=== PATIENT | female | born 1940 | race Caucasian/White ===

== ENCOUNTER → 2016-07-22 | Outpatient (CLI) | payer MEDICARE, BC ==
[~2016-07-22] MED LIST: ACETAMINOPHEN325 MG PO; ASPIRIN81 M2 PO; COMBIGAN EYE DRO5 ML OU; DILTIAZEM ER180 M2 PO; HARD NAILS2500 MCG PO; HYDROCODON-ACE1 EAC7 PO; LIPITOR20 MG PO; LOSARTAN-HCTZ1 EACH PO; MOBIC15 MG PO; MULTI VITAMIN1 EACH PO; VITAMIN D32000 UNIT PO
--- NOTE | ~2016-07-22 | EKG ---
PATIENT: OJ MEDINA UNIT #: [id number] Ventricular Rate: 72 BPM Atrial Rate: 72 BPM P-R Interval: 204 ms QRS Duration: 84 ms Q-T Interval: 358 ms QTC Calculation(Bezet): 392 ms P [place]rae [place]: 43 degrees Calculated R [place]: 5 degrees Calculated T Mcrae [place]: 43 degrees Diagnosis Line: Normal sinus rhythm Diagnosis Line: Normal ECG Diagnosis Line: No previous ECGs available Diagnosis Line: Confirmed by NAVIN GUAJARDO MD ([id number]) on Diagnosis Line: 07/22/2016 2:03:36 PM INTERPRETING MD: CASANDRA BARBOUR
--- NOTE | ~2016-07-22 | CO ---
Unit #: [id number] #: [id number] Patient: OJ MEDINA [id number] [address] [place], [place] [address] [id number] O MR#: [id number] NAME: OJ MEDINA ROOM: Age: 76 Sex: F Admission Date: 07/22/2016 : 1940 Attending Physician: Rivas Russo M.D. Primary Care Physician: Violette Schneider M.D. Consultation Date: 07/22/2016 CONSULTATION REPORT REASON FOR CONSULTATION Preoperative medical evaluation prior to revision right total knee arthroplasty scheduled by Dr. Russo for 08/03/2016. HISTORY OF PRESENT ILLNESS The patient is a 76-year-old, female, who presents to preprocedural screening for the reasons indicated above. The patient complains of pain at the time of this interview about a 4/10 on the pain scale, which she describes as constant and achy in nature, otherwise sharp if she twists her knee. She denies chest, upper back, arm, neck, jaw pain or pressure. She tells me she has a history of mitral valve prolapse and known cardiac murmur. She has shortness of air with steps and states that she had a 2D echocardiogram performed by order of her primary care physician, Dr. Violette Schneider in [place] within the last couple of weeks and that she was told it was normal. She had a stress test performed, but it was many years ago. She does not have a java programmer. She denies paroxysmal nocturnal dyspnea. Her reports that she does snore at night and she has not had obstructive sleep apnea evaluation. She denies lightheadedness, dizziness, presyncope, syncope or heart palpitations. She has been evaluated by Dr. Russo and scheduled for the above-referenced procedure. PAST MEDICAL HISTORY 1. Osteoarthritis. 2. Hypertension. 3. Hyperlipidemia. 4. Obesity, BMI of 32. 5. Mitral valve prolapse with history of cardiac murmur. 6. History of gastritis and esophagitis. 7. History of upper and lower back pain. 8. History of breast cancer, status post radiation therapy. 9. Risk factors for obstructive sleep apnea without evaluation. 10. The patient's last dental exam was over 1 year ago. PAST SURGICAL HISTORY 1. Bilateral total knee arthroplasties. 2. Right lumpectomy for DCIS. 3. Eyelid surgically raised and bilateral cataract extraction. Please note, the patient denies a personal and family history of complications to anesthesia. ALLERGIES Tramadol caused her to faint and gabapentin caused her to be agitated. She denies latex allergy. Unit #: [id number] #: [id number] Patient: OJ MEDINA CURRENT MEDICATIONS Losartan/HCTZ 50/12.5 mg tab one p.o. daily, Mobic 15 mg p.o. daily, Lipitor 20 mg p.o. at bedtime, diltiazem ER 180 mg p.o. at bedtime, hydrocodone/acetaminophen 5/325 mg tab one p.o. q.6 hours p.r.n. pain, multivitamin one p.o. daily, vitamin D3 2000 units p.o. daily, 2500 mcg p.o. daily (Johnathan), aspirin 81 mg p.o. at bedtime, acetaminophen 650 mg p.o. q.4 hours p.r.n. pain or headache, Combigan eyedrops one drop in both eyes every 12 hours. SOCIAL HISTORY Denies ETOH or illicit drug use and tobacco use. FAMILY HISTORY Per review of Dr. Russo's office note, father had a history of TIAs and Parkinson disease as well as colon cancer. Mother with history of diabetes, hypertension, hyperlipidemia and myocardial infarction. REVIEW OF SYSTEMS Shortness of air with steps and chronic left ankle puffiness with sharp pain secondary to what she believes is a torn left ankle tendon, although she is not certain about this. She has been evaluated by Dr. Taylor in this regard and at this time, there is no surgical intervention planned. She wears a small compressive support around the left ankle. A 10-point review of systems is conducted and otherwise negative except as indicated under history of present illness above. PHYSICAL EXAMINATION GENERAL: A 76-year-old, female, awake, alert, in no acute distress. VITAL SIGNS: Temperature 97.4, heart rate 70, respiratory rate 16, blood pressure 113/70, oxygen saturation 97% on room air. HEENT: Atraumatic, normocephalic. Sclerae anicteric. No discharge from eyes, ears, or nares. LYMPH: No preauricular, postauricular, tonsillar, submental, anterior-posterior cervical, supra or infraclavicular adenopathy. ENDOCRINE: No thyromegaly, thyroid nodules, or tenderness. LUNGS: Clear to auscultation in all [place] bilaterally without wheezes, rhonchi, or rales. CARDIOVASCULAR: S1, S2. Regular rate and rhythm. Grade 2/6 cardiac murmur best heard at the left second intercostal space at the sternal border. GI: Bowel sounds are positive x4. Soft, nontender, nondistended. EXTREMITIES: Left lower extremity, 2 to 3+ edema with left ankle wrap in place. MUSCULOSKELETAL: Strength 5/5 in all extremities bilaterally, flexion-extension. NEUROLOGIC: Alert and oriented x3. Speech clear. Follows commands. DIAGNOSTIC STUDIES LABORATORY RESULTS: WBC 6.9, hemoglobin 11.8, hematocrit 35.8, platelet count 290,000. Sedimentation rate 37. Blood type A negative. Antibody screen negative. CRP less than 0.5. Urinalysis result is pending at this time. MRSA nasal swab report is pending at this time. IMAGING STUDIES: Two-view chest x-ray report is pending at this time. Unit #: [id number] #: [id number] Patient: OJ MEDINA CARDIOVASCULAR STUDIES: 12-lead EKG, normal sinus rhythm, normal ECG. Confirmed report pending at this time. 2D and M-mode echocardiogram report, date of study 03/04/2016, conclusion; fibrocalcific mitral and aortic valves. Normal systolic function. Mild aortic stenosis. Mild mitral regurgitation. Electronically signed by Dr. Sehldon Shannon. Date of service 02/07/2016, Duplex carotid scan; impression; mild plaque with scattered calcification, criteria by peak systolic elevation for 60% to 79% stenosis vertebra, flow was antegrade. Incomplete report available with medical records today. IMPRESSION The patient is a 76-year-old female, who presents to preprocedural screening for: 1. Preoperative evaluation prior to revision right total knee arthroplasty. Based on the information the patient has provided today, her Brandon revised Cardiac Risk index is equal to 0.4%. This represents her perioperative risk of fatal or nonfatal myocardial infarction, cardiopulmonary arrest, cardiac arrhythmia and/or pulmonary edema. This has been discussed in detail with the patient. She wishes to proceed with surgery as scheduled at this time. However, given the patient's shortness of air when attempting to go up and down steps as well as mild aortic stenosis, I recommend the patient have preoperative cardiac clearance. Any further workup will be per recommendation of Cardiology. 2. Risk factors for obstructive sleep apnea. I have recommended preoperative pulmonary clearance for obstructive sleep apnea evaluation. 3. Hypertension. Blood pressure stable today. We will adjust medications perioperatively if indicated. 4. History of gastritis and esophagitis. The patient is stable and without complaint today. We will add proton pump inhibitor postoperatively if indicated. 5. The remainder of the patient's chronic medical conditions are stable at this time. Thank you for allowing us to participate in the care of this patient. We will gladly follow the patient for postop medical management pending the followin. Pulmonary clearance for JAC evaluation. 2. Cardiac clearance secondary to dyspnea on exertion and mild aortic stenosis. 3. Preoperative dental clearance. Dictated by... Vashti Verdin A.P.R.N. for Milli Chawla/barrera TD: 07/24/2016 06:21 JOB #: [id number] Unit #: [id number] #: [id number] Patient: OJ MEDINA CONSULTATION REPORT Page 1 of 1 X Vashti Verdin APRN X CONSULTATION REPORT
--- NOTE | ~2016-07-22 | CR63 ---
[facility] A Service of [facility] & [facility] RADIOLOGY TEXT RESULTS PATIENT: OJ MEDINA LOCATION: [facility] : [birth year] UNIT #: [id number] AGE: [address]: Rivas Russo MD SEX: F ORDER DR: [id number] [facility] [address] [place], [place] [address] [id number] O MR#: [id number] Acc #: [id number] NAME: OJ MEDINA : 1940 SEX: F STUDY DATE/TIME: 07/22/2016 UNIT: [facility] ROOM: STUDY DESCRIPTION: CR Chest 2 View Attending Physician: Rivas Russo M.D. Referring Physician: Rivas Russo M.D. Ordering Physician: Rivas Russo M.D. Primary Care Physician: Violette Schneider M.D. MEDICAL IMAGING REPORT This report is preliminary unless electronic signature is present EXAM Chest 2 views, 07/22/2016 11:07 hours HISTORY 76-year-old woman with history of prior malignancy, hypertension and chronic kidney disease on Coumadin. Preop evaluation for revision of right knee replacement. COMPARISON None. FINDINGS Upright PA and lateral views of the chest demonstrate normal heart size. Aortic contours are normal. Patient is rotated to the right. The lungs are well expanded and clear. There are no effusions. IMPRESSION No acute cardiopulmonary findings. Dictated by... Kamini Magallanes M.D. THIS IS AN ELECTRONICALLY VERIFIED REPORT Kamini Magallanes M.D. at 07/23/2016 9:27 AM MEHREEN/kristen TD: 07/22/2016 18:20 JOB #: [id number] MEDICAL IMAGING REPORT Page 1 of 1 COPY
[2016-07-22 09:38] LABS: HEMATOCRIT 35.8 % (35.0-45.0); HEMOGLOBIN 11.8 gm/dL (12.0-16.0); MEAN CELL VOLUME 95.1 FL (83-96); MEAN CORPUSCULAR HEMOGLOBIN 31.4 PG (28-34); MEAN PLATELET VOLUME 7.5 FL (6.5-11.5); RED BLOOD COUNT 3.76 X10e (3.90-5.30); RED CELL DISTRIBUTION WIDTH 13.4 % (11.0-15.5); WHITE BLOOD COUNT 6.9 X10e3 (4.0-10.5)
[2016-07-22 09:40] LABS: URINE APPEARANCE CLEAR; URINE BILIRUBIN NEG (NEG); URINE BLOOD NEG (NEG); URINE COLOR YELLOW; URINE GLUCOSE NEG (NEG); URINE KETONE NEG (NEG); URINE LEUKOCYTE ESTERASE TRACE (NEG); URINE NITRATE NEG (NEG); URINE PH 6.5 (5-8); URINE PROTEIN NEG (NEG); URINE SPECIFIC GRAVITY 1.011 (1.003-1.035); URINE UROBILINOGEN 0.2 MG/DL (NEG)
[2016-07-22 09:44] LABS: URBCS1 AUWI 0-2 /[HPF] (0-2); URINE BACTERIA AUWI NEG (NEGATIVE); URINE SQUAMOUS EPITHELIAL CELL NONE SEEN /[HPF]; UWBCS1 AUWI 0-2 (0-5)
[2016-07-22 09:59] LABS: PROTHROMBIN TIME (PATIENT) 10.1 SECONDS (9.6-11.5)
[2016-07-22 10:00] LABS: CULTURE INDICATED? NO
[2016-07-22 10:01] LABS: ALBUMIN SERUM 3.8 g/dL (3.5-5.0); BILIRUBIN,TOTAL 0.6 mg/dL (0.2-2.0); BUN/CREATININE RATIO 20.83; CALCIUM SERUM 9.5 mg/dL (8.4-10.2); CREATININE SERUM 1.2 mg/dL (0.6-1.4); GLOM FILT RATE Estimated 44.5 mL/min (>60); POTASSIUM 4.5 mmol/L (3.5-5.1); PROTEIN TOTAL SERUM 6.6 g/dL (6.0-8.3)
[2016-07-22 10:28] LABS: URINE SOURCE CLEAN CATCH
== END | disposition home or self-care (01) ==
LOC: CAMB 08:51
PROVIDERS: Orthopaedic Surgery
DX: Z01.818 Encounter for other preprocedural examination (principal); T84.022A Instability of internal right knee prosthesis, initial encounter; I12.9 Hypertensive chronic kidney disease with stage 1 through stage 4 chronic kidney disease, or unspecified chronic kidney disease; N18.9 Chronic kidney disease, unspecified; E78.5 Hyperlipidemia, unspecified
CPT/HCPCS: 36415; 71020; 80053; 81003; 85027; 85610; 85652; 86140; 86850; 86900; 86901; 87070; 93005